=== PATIENT | female | born 1970 | race Caucasian/White ===

== ENCOUNTER 2020-07-19 16:39 | Outpatient (REF) | payer OTHER, SELFPAY ==
[2020-07-20 19:07] LABS: Prolactin 12.8 ng/mL
== END 2020-07-19 16:40 | disposition home or self-care (01) ==
LOC: HO.LAB 16:39
PROVIDERS: PCP Physician Assistant; Visit Provider Psychiatry & Neurology Neurology
DX: G43.009 Migraine without aura, not intractable, without status migrainosus (principal)
CPT/HCPCS: 84146

== ENCOUNTER 2021-05-23 15:59 | Emergency (ER) | payer OTHER, SELFPAY ==
[2021-05-23 16:33] VITALS: BP 123/84; PULSE 81; RESP 16; TEMP 37.2; O2SAT 99; BMI 26.5
[2021-05-23 18:00] VITALS: BP 127/84; PULSE 87; RESP 14; TEMP 36.6; O2SAT 100
--- NOTE | 2021-05-23 18:22 | ED_ITS ---
HPI - Skin/Abscess/Foreign Bdy General Chief complaint: Skin/Abscess/Foreign Body Stated complaint: rash Time Seen by Provider: 05/23/21 17:58 Source: patient Mode of arrival: ambulatory Limitations: no limitations History of Present Illness HPI narrative: 50-year-old female with an itchy rash on her bilateral arms and right leg that started few days ago and became much worse yesterday. Patient states the rash is more itchy than painful. It started small papules and then spreads into larger red itchy areas. Patient has not had any new hair products, shampoos, body lotions, laundry detergent, foods, pets, or body wash. Patient does state that she did wear new clothes that she did not wash prior to wearing on her arms and legs. Patient states she is putting Vicks vapor rub on it Patient is feeling well otherwise, no fever, no shortness of breath, no throat swelling, no lip swelling. MD complaint: rash Onset (ago): day(s) (1) Tetanus up to date: unsure Location: LUE, RUE and RLE Severity: moderate Severity scale (1-10): 6 Quality: pruritic Pain Consistency: constant Relieving factors: none Associated symptoms: itching Related Data Previous Rx's Medication Instructions Recorded prednisone 10 mg tablet 10 mg PO DAILY 12 Days #39 tab 05/23/21 Allergies Allergy/AdvReac Type Severity Reaction Status Date / Time No Known Allergies Allergy Verified 05/23/21 17:30 Review of Systems Review of Systems: Constitutional : No Weight loss, No Fever, No Chills, No Night Sweats,No Fatigue, No Malaise ENT/Mouth : No Hearing loss, No Ear Pain, No Nasal Congestion, NoSinus Pain, No Hoarseness, No sore throat, No Rhinorrhea, NoSwallowing Difficulty Eyes: No Eye Pain, No Swelling, No Redness, No Foreign Body, NoDischarge, No Vision Changes Cardiovascular : No Chest Pain, No SOB, No Dyspnea on Exertion, NoOrthopnea, No Edema, No Palpitations Respiratory : No Cough, No Sputum, No Wheezing, No Smoke Exposure, No Dyspnea Gastrointestinal : No Nausea, No Vomiting, No Diarrhea, NoConstipation, No abdominal Pain, No Hematochezia, No Melena Genitourinary : no irregular bleeding, No Dysuria, No UrinaryFrequency, No Hematuria, No Urinary Incontinence, No Urgency, No FlankPain, No Urinary Flow Changes, No Hesitancy Musculoskeletal : No joint pain, No Myalgias, No Joint Swelling Skin : rash Neuro : No Weakness, No Numbness, No Paresthesias, No Loss ofConsciousness, No Dizziness, No Headache [facility] Past Medical History Medical History (Updated 05/23/21 @ 18:27 by BRIDGETTE Keenan) Migraine Social History Social History Advance Directives: No Advance Directives Information Provided: No Patient : No Physical Exam Vital Signs: Vital Signs: Last Vital Signs Temp 97.8 F 05/23/21 18:00 Pulse 87 05/23/21 18:00 Resp 14 05/23/21 18:00 BP 127/84 05/23/21 18:00 Pulse Ox 100 05/23/21 18:00 Body Mass Index 26.5 Const: General: cooperative, no acute distress, well developed, alert and awake Nutritional Appearance: well nourished Orientation/consciousness: patient oriented x3 Limitations: no limitations Eyes: Conjunctivae: conjunctivae normal Pupils: Equal, round and reactive pupils present EOM: EOMs intact bilaterally Resp: Effort & Inspection: normal respiratory effort and able to speak in complete sentences Auscultation: clear to auscultation bilaterally, no crackles, no rales, no rhonchi and no wheezes Cardio: Rate: regular rate Rhythm: regular rhythm Heart sounds: S1 normal heart sound present and S2 normal heart sound present Skin: Rashes: rashes noted maculopapular rash bilateral upper arm Neuro: General: patient oriented x3, tone normal and moves all extremities Cranial nerves: Yes Equal, round and reactive pupils present Extrem: General: Yes normal to inspection and Yes full ROM Psych: Appearance: grossly normal Affect: normal affect Attitude: cooperative Thought process: Normal thought process present Course Course Course Narrative: 50-year-old female presents with itchy rash that started yesterday after wearing new clothes. On exam, patient has scattered maculopapular rash on her bilateral upper extremities, and more scattered and singular papules on her right leg. This 6 seconds a contact dermatitis. Gave patient a prednisone taper, [id number] Benadryl Consult return precautions. Patient verbalized agreement and understanding of the plan Discharge Plan Discharge Clinical Impression: Contact dermatitis Qualifiers: Contact dermatitis type: unspecified Contact dermatitis trigger: unspecified trigger Qualified Code(s): L25.9 - Unspecified contact dermatitis, unspecified cause Patient Disposition: Home, Self-Care Instructions: Contact Dermatitis (ED) Additional Instructions: Please fill your prescription for prednisone. You will feel better in a few days, however I want you to finish your entire prescription, because the rash may return if you do not, as we discussed. Please return for fevers, painful rash, nausea, vomiting, or any other new or concerning symptoms. Prescriptions: New prednisone 10 mg tablet 10 mg PO DAILY 12 Days Qty: 39 RF: 0 Interventions: ED Discharge Assessment Last Done: 05/23/21 18:38 Discharge Date/Time: 05/23/21 18:39
== END 2021-05-23 18:39 | disposition home or self-care (01) ==
PROVIDERS: Emergency Provider Internal Medicine
DX: L25.9 Unspecified contact dermatitis, unspecified cause (principal)
CPT/HCPCS: 99283; 99284

== ENCOUNTER 2021-07-08 12:17 | Emergency (ER) | payer OTHER, SELFPAY ==
[2021-07-08 12:56] VITALS: BP 139/79; PULSE 80; RESP 18; TEMP 36.2; O2SAT 98; BMI 25.6
[2021-07-08 13:12] VITALS: BP 143/87; PULSE 100; RESP 18; TEMP 36.1; O2SAT 99
--- NOTE | 2021-07-08 13:18 | ED.DENTAL ---
HPI - Dental/Oral General Chief complaint: Dental/Oral Stated complaint: mouth abscess Time Seen by Provider: 07/08/21 13:13 Source: patient Mode of arrival: ambulatory Limitations: no limitations History of Present Illness MD Complaint: tooth pain Teeth map: 1. Onset (ago): day(s) (The past few days worse today) Duration: worsening Severity: moderate Relieving factors: nothing Exacerbating factors: nothing Context: history of dental caries and poor dental care Associated symptoms: ear pain Treatment prior to arrival: other (She was seen at another location and placed on clindamycin, steroids and Motrin no symptomatic relief on Sunday she has an appointment today at 17:00 with a dentist) Related Data Previous Rx's Medication Instructions Recorded prednisone 10 mg tablet 10 mg PO DAILY 12 Days #39 tab 05/23/21 acetaminophen 300 mg-codeine 30 mg 1 tab PO Q8H PRN #14 tab 07/08/21 tablet Allergies Allergy/AdvReac Type Severity Reaction Status Date / Time No Known Allergies Allergy Verified 05/23/21 17:30 Review of Systems Review of Systems: Constitutional : No Fever, No Chills, No changes in PO intake, No difficulty speaking, no recent dental procedure, no heat or cold intolerance while eating, no recent face trauma, ENT/Mouth : + Dental pain, No Sore throat, No Jaw pain, No throat swelling, No swallowing difficulty, no change in voice, No facial swelling, no drooling, no trismus, no bleeding, no lacerations, no tongue swelling, gum swelling, Eyes: No Eye Pain, No periorbital Swelling Cardiovascular : No Chest Pain, No SOB Respiratory : No Cough, No Sputum, No Wheezing, No Smoke Exposure, No Dyspnea Gastrointestinal : No Nausea, No Vomiting, No Diarrhea Genitourinary : No Dysuria Musculoskeletal : No Myalgias Skin : No rash, no facial swelling or redness, Neuro : No Weakness, No Numbness, No Headache Yes all other systems are reviewed and are negative [facility] Past Medical History Attestation statement: The following information was validated with the patient. Medical History Migraine Social History Social History Advance Directives: No Physical Exam Vital Signs: Vital Signs: Last Vital Signs Temp 97.0 F 10/22/21 13:12 Pulse 100 07/08/21 13:12 Resp 18 07/08/21 13:12 BP 143/87 H 07/08/21 13:12 Pulse Ox 99 07/08/21 13:12 Body Mass Index 25.6 vital signs have been reviewed as normal and appeared to be correct. Blood pressure normal. Heart rate normal. Respiration rate normal. Temperature normal. Oxygen saturation normal. Appearance: Alert. Oriented X3. No acute distress. Head: Normal external exam. Normocephalic. Atraumatic. Eyes: PERRLA. EOMI. Conjunctiva and sclera normal. Eyelids normal. ENT: EAC normal. TM's Normal. Pharynx normal. Uvula midline. Moist mucous membranes. No trismus noted. No drooling noted. No muffled voice noted. Dentition: Patient with poor dentition throughout with multiple old fractured teeth with multiple dental caries. Gingival within normal limits. No fluctuance. Not consistent with peritonsillar abscess. Not consistent with dental abscess. No salivary duct obstruction noted. Neck: Normal inspection. Neck supple. FROM. No adenopathy. Thyroid Normal. No meningeal signs. No neck mass noted. Trachea midline. CVS: Normal heart rate and rhythm. Heart sound normal. No murmurs noted. Pulses normal throughout. Respiratory: No respiratory distress. Painless inspiration. Breath sounds normal. No wheezes/rales/rhonchi noted. Chest nontender. No accessory muscle usage noted or decreased air movement noted. Back: Full range of motion noted. Skin: Skin warm and dry. Normal skin color. Normal skin turgor. No rashes/lesions/lacerations noted. Extremities:Extremities exhibit normal range of motion. Extremities nontender. Neuro: Oriented X 3. No motor deficit. No sensory deficit. Reflexes normal. Course Course Course Narrative: 50-year-old female presenting with left upper dental pain at the molar aspect. No signs of abscesses. No trismus/drooling. Patient tolerating secretions well. Will DC home with symptomatic treatment instructions to continue taking her antibiotics as prescribed and to follow up with the dentist as scheduled today. Patient understands agrees with this plan and to return if any new or worsening symptoms. [facility] - Dental/Oral Medical Records Attestation: I reviewed the patient's medical records. Discharge Plan Discharge Clinical Impression: Toothache, Dental caries Patient Disposition: Home, Self-Care Instructions: Toothache (ED), Mouth Care (ED) Prescriptions: New acetaminophen-codeine 300-30 mg tablet 1 tab PO Q8H PRN (Reason: pain) Qty: 14 RF: 0 No Action prednisone 10 mg tablet 10 mg PO DAILY 12 Days Qty: 39 RF: 0 Referrals: Physician,Unknown J [Primary Care Provider] - 2 days (your pcp) Print Language: Nepali
== END 2021-07-08 13:37 | disposition home or self-care (01) ==
PROVIDERS: Emergency Provider Emergency Medicine
DX: K02.9 Dental caries, unspecified (principal)
CPT/HCPCS: 99283; 99284

== ENCOUNTER 2022-09-27 15:22 | Emergency (ER) | payer OTHER, SELFPAY ==
[2022-09-27 15:45] VITALS: BP 113/73; PULSE 86; RESP 18; TEMP 36.4; O2SAT 96; BMI 25.6
--- NOTE | 2022-09-27 15:46 | ED.GENADULT ---
HPI - General Adult General Chief complaint: Back Pain/Injury <BRIDGETTE Fagan - Last Filed: 09/27/22 15:50> Stated complaint: back pain, injury at home 3 days ago <BRIDGETTE Fagan - Last Filed: 09/27/22 15:50> Time Seen by Provider: 09/27/22 16:33 <BRIDGETTE Fagan - Last Filed: 09/27/22 15:50> History of Present Illness HPI narrative: Patient complains of back pain after injury at home 3 days ago, she was bending over and a piece of wood from the top of the [employer] fell and hit her in the left lower back when she had jostled the [employer] The pain radiates into her left gluteal area, there is no numbness weakness or tingling no changes to bowel or bladder she is walking easily There is no chest pain no shortness of breath no abdominal pain no nausea or vomiting no extremity injuries <BRIDGETTE Valladares - Last Filed: 09/27/22 17:14> Related Data Home medications: Previous Rx's Medication Instructions Recorded prednisone 10 mg tablet 10 mg PO DAILY 12 days #39 tabs 05/23/21 acetaminophen 300 mg-codeine 30 mg 1 tab PO Q8H PRN pain #14 tabs 07/08/21 tablet acetaminophen 500 mg tablet 1,000 mg PO TID PRN pain #30 tabs 09/27/22 cyclobenzaprine 5 mg tablet 5 mg PO TID PRN muscle spasm #14 09/27/22 tabs ibuprofen 600 mg tablet 600 mg PO Q6H PRN pain #20 tabs 09/27/22 oxycodone 5 mg tablet 5 mg PO Q6H PRN pain #10 tabs 09/27/22 <BRIDGETTE Fagan - Last Filed: 09/27/22 15:50> Allergies/adverse reactions: Allergies Allergy/AdvReac Type Severity Reaction Status Date / Time No Known Allergies Allergy Verified 09/27/22 15:49 <BRIDGETTE Fagan - Last Filed: 09/27/22 15:50> PMFSH Past Medical History Source: nursing notes reviewed <BRIDGETTE Valladares - Last Filed: 09/27/22 17:14> Medical History: Medical History Migraine <BRIDGETTE Fagan - Last Filed: 09/27/22 15:50> Social History Social History: Social History Advance Directives: No Advance Directives Information Provided: No Patient : No <BRIDGETTE Fagan - Last Filed: 09/27/22 15:50> Physical Exam ED Vital Signs: Vital Signs - 24 hr 09/27/22 15:45 Temperature 97.6 F Pulse Rate 86 Respiratory Rate 18 Blood Pressure 113/73 Pulse Oximetry 96 Oxygen Delivery Method Room Air BMI result Body Mass Index 25.6 <BRIDGETTE Fagan - Last Filed: 09/27/22 15:50> Vital Signs - 24 hr 09/27/22 15:45 Temperature 97.6 F Pulse Rate 86 Respiratory Rate 18 Blood Pressure 113/73 Pulse Oximetry 96 Oxygen Delivery Method Room Air BMI result Body Mass Index 25.6 <BRIDGETTE Valladares - Last Filed: 09/27/22 17:14> General appearance is no acute distress Head is normocephalic atraumatic Neck is supple nontender Respiratory no distress Chest wall nontender Abdomen soft nontender The back had left sided paraspinal soft tissue lower lumbar tenderness, there was no midline or spinal tenderness, pain is reproduced with movement Extremities full range of motion x4 Neuro no focal motor sensory deficits, gait and balance are normal <BRIDGETTE Valladares - Last Filed: 09/27/22 17:14> Course Course Course Narrative: RME - 52 yo female presents to the ER for left sided back pain after a piece of furniture fell and hit her 3-4 days ago. XRs ordered. <BRIDGETTE Fagan - Last Filed: 09/27/22 15:50> RME - 52 yo female presents to the ER for left sided back pain after a piece of furniture fell and hit her 3-4 days ago. XRs ordered. After 0 full physical there is no midline tenderness no evidence of fracture so x-ray was canceled Patient most likely has bruised muscles in her left lower back and she is prescribed analgesics and muscle relaxer There is no neurologic deficit, she is walking easily no changes to bowel or bladder no IV drug use no fever and patient is discharged <BRIDGETTE Valladares - Last Filed: 09/27/22 17:14> Discharge Plan Discharge Clinical Impression: Back pain <BRIDGETTE Fagan - Last Filed: 09/27/22 15:50> Patient Disposition: Home, Self-Care <BRIDGETTE Fagan - Last Filed: 09/27/22 15:50> Additional Instructions: No sign of any broken bone or dangerous injury Use pain medicine and muscle relaxer as directed Return any time any worse condition or concerns If pain does not go away on its own follow with primary doctor <BRIDGETTE Fagan - Last Filed: 09/27/22 15:50> Prescriptions: New acetaminophen 500 mg tablet 1,000 mg PO TID PRN (Reason: pain) Qty: 30 0RF ibuprofen 600 mg tablet 600 mg PO Q6H PRN (Reason: pain) Qty: 20 0RF cyclobenzaprine 5 mg tablet 5 mg PO TID PRN (Reason: muscle spasm) Qty: 14 0RF Rx Instructions: This medication causes drowsiness no driving for 6 hours after taking oxycodone 5 mg tablet 5 mg PO Q6H PRN (Reason: pain) Qty: 10 0RF Rx Instructions: Partial Fill upon patient request. No Action prednisone 10 mg tablet 10 mg PO DAILY 12 Days Qty: 39 0RF Rx Instructions: Take 6 pills in the morning for the 1st 3 days, then take 4 pills in the morning for the next 3 days, then take 2 pills in the morning for the next 3 days, then take 1 pill in the morning for the last 3 days. Total of 12 days. acetaminophen-codeine 300-30 mg tablet 1 tab PO Q8H PRN (Reason: pain) Qty: 14 0RF <BRIDGETTE Fagan - Last Filed: 09/27/22 15:50> Discharge Date/Time: 09/27/22 17:07 <BRIDGETTE Fagan - Last Filed: 09/27/22 15:50>
--- NOTE | 2022-09-27 17:06 | PC.NURSE ---
patient discharged by provider . no questions at this time .
== END 2022-09-27 17:07 | disposition home or self-care (01) ==
PROVIDERS: Emergency Provider Emergency Medicine
DX: M54.50 Low back pain, unspecified (principal); Z79.899 Other long term (current) drug therapy
CPT/HCPCS: 99283